=== PATIENT | female | born 2000 | race Caucasian/White ===

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

== ENCOUNTER 2020-04-15 19:54 | Emergency (ER) | payer BC ==
[~2020-04-15] VITALS: Ht 154.9 cm; Wt 45.8 kg
[2020-04-15 20:22] VITALS: BP 109/65; Ht 154.9 cm; Wt 45.8 kg
== END 2020-04-16 00:33 | disposition left against medical advice (07) ==
LOC: ED 19:54
DX: Z53.21 Procedure and treatment not carried out due to patient leaving prior to being seen by health care provider (principal)